=== PATIENT | male | born 2000 | race Caucasian/White ===

== ENCOUNTER 2024-11-16 10:09 | Emergency (ER) | payer OTHER ==
[2024-11-16] MEDS: Lidocaine 1% 30 ML SDV INJECT ONE (10:38)
== END 2024-11-16 11:16 | disposition home or self-care (01) ==
LOC: VM.ED 10:09
DX: S61.412A Laceration without foreign body of left hand, initial encounter (principal); W26.8XXA Contact with other sharp object(s), not elsewhere classified, initial encounter; Y93.89 Activity, other specified
CPT/HCPCS: 12001; 99282; 99283; J2003